=== PATIENT | female | born 1970 | race African-American/Black ===

== ENCOUNTER 2022-01-09 00:03 | Emergency (ER) | payer OTHER ==
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
[2022-01-09] MEDS ORDERED: HYDROCODONE/APAP 5/325 MG TAB ONE (00:50)
[2022-01-09 01:00] LABS: Urine Blood Negative (Negative); Urine Glucose Negative (Negative); Urine Protein Negative (Negative); Urine pH 5.5 (5.0-7.0)
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
--- NOTE | 2022-01-09 04:11 | EDPHYS ---
Physician Documentation [facility] Name: Isaías Ulloa Age: 51 yrs Sex: Female : 1970 Arrival Date: 01/09/2022 Time: 00:06 Bed 5 Private MD: ED Physician Adelso Dyson HPI: 01/09 00:49 This 51 yrs old Black Female presents to ER via Ambulatory with complaints of Fall mh7 Injury. 00:49 Details of fall: The patient fell from a height, down approximately 3 stairs, and mh7 struck a concrete surface. Onset: The symptoms/episode began/occurred last night. Associated injuries: The patient sustained upper back injury, pain, pain with movement, injury to the low back, pain, pain with movement, left shoulder. 00:52 Severity of symptoms: At their worst the symptoms were moderate, last night, in the [facility] emergency department the symptoms have improved, moderately. States that she was walking downstairs at her sisters place when a stair gave way, breaking in half, which caused her to slip and fall down a few stairs onto her back. Denies any head trauma or LOC. . 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 - Social history:: Smoking status: Patient denies any tobacco usage or history of. Patient/guardian denies using alcohol, street drugs. ROS: 00:52 Constitutional: Negative for fever, chills, and weight loss, Eyes: Negative for injury, mh7 pain, redness, and discharge, ENT: Negative for injury, pain, and discharge, Cardiovascular: Negative for chest pain, palpitations, and edema, Respiratory: Negative for shortness of breath, cough, wheezing, and pleuritic chest pain, Abdomen/GI: Negative for abdominal pain, nausea, vomiting, diarrhea, and constipation, : Negative for injury, bleeding, discharge, and swelling, Skin: Negative for injury, rash, and discoloration, Neuro: Negative for headache, weakness, numbness, tingling, and seizure, Psych: Negative for depression, anxiety, suicide ideation, homicidal ideation, and hallucinations, Allergy/Immunology: Negative for hives, rash, and allergies, Endocrine: Negative for neck swelling, polydipsia, polyuria, polyphagia, and marked weight changes, Hematologic/Lymphatic: Negative for swollen nodes, abnormal bleeding, and unusual bruising. Exam: 00:52 Head/Face: Normocephalic, atraumatic. Eyes: Pupils equal round and reactive to light, mh7 extra-ocular motions intact. Lids and lashes normal. Conjunctiva and sclera are non-icteric and not injected. Cornea within normal limits. Periorbital areas with no swelling, redness, or edema. Chest/axilla: Normal chest wall appearance and motion. Nontender with no deformity. No lesions are appreciated. Cardiovascular: Regular rate and rhythm with a normal S1 and S2. No gallops, murmurs, or rubs. Normal PMI, no JVD. No pulse deficits. Respiratory: Lungs have equal breath sounds bilaterally, clear to auscultation and percussion. No rales, rhonchi or wheezes noted. No increased work of breathing, no retractions or nasal flaring. Abdomen/GI: Soft, non-tender, with normal bowel sounds. No distension or tympany. No guarding or rebound. No evidence of tenderness throughout. Skin: Warm, dry with normal turgor. Normal color with no rashes, no lesions, and no evidence of cellulitis. Neuro: Awake and alert, GCS 15, oriented to person, place, time, and situation. Cranial nerves II-XII grossly intact. Motor strength 5/5 in all extremities. Sensory grossly intact. Cerebellar exam normal. Normal gait. Psych: Awake, alert, with orientation to person, place and time. Behavior, mood, and affect are within normal limits. 00:52 Constitutional: The patient appears in no acute distress, alert, awake, uncomfortable. Vital Signs: 00:14 BP 164 / 94; Pulse 78; Resp 18; Temp 97.3; Pulse Ox 99% on R/A; Weight 108.86 kg; renzo Height 6 ft. 1 in. (185.42 cm); Pain 8/10; 02:01 BP 137 / 87; Pulse 56; Resp 16; Pulse Ox 98% on R/A; kd3 02:53 BP 122 / 77; Pulse 52; Resp 16; Pulse Ox 100% on R/A; kd3 03:47 BP 152 / 83; Pulse 54; Resp 17; Pulse Ox 100% on R/A; kd3 00:14 Body Mass Index 31.66 (108.86 kg, 185.42 cm) renzo MDM: 04:05 Differential diagnosis: abrasion, contusion, fracture, sprain. Data reviewed: vital [facility] signs, nurses notes, lab test result(s), UPT: negative radiologic studies, CT scan, plain films. Data interpreted: Pulse oximetry: on room air is 100 %. Interpretation: normal. Counseling: I had a detailed discussion with the patient and/or guardian regarding: the historical points, exam findings, and any diagnostic results supporting the discharge/admit diagnosis, the presence of at least one elevated blood pressure reading (>120/80) during this emergency department visit, lab results, radiology results, the need for outpatient follow up, to return to the emergency department if symptoms worsen or persist or if there are any questions or concerns that arise at home. Response to treatment: the patient's symptoms have markedly improved after treatment. ED course: Discussed all test results including CT Cervical spine with lucencies at C3, C4, C6, and C7 and recommendation for MRI to evaluate for metastasis or myeloma. She verbalized that she understood the information as presented.. 04:10 Patient medically screened. [facility] 01/09 00:59 Order name: Urine --Ancillary (enter results); Complete Time: 01:12 ds4 01/09 01:00 Order name: Urine Dipstick-Ancillary; Complete Time: 01:12 EDMS 01/09 00:42 Order name: CT Thoracic Spine Wo Cont [facility] 01/09 00:42 Order name: CT Lumbar Spine Wo Con [facility] 01/09 00:45 Order name: Shoulder Left (2 View) XRAY [facility] 01/09 00:54 Order name: CT C Spine [facility] 01/09 00:45 Order name: Urine Test (obtain specimen); Complete Time: 00:59 [facility] Administered Medications: 00:51 Drug: [place] (HYDROcodone-acetaminophen) 5 mg-325 mg 1 tabs Route: PO; kd3 04:28 Follow up: Response: No adverse reaction; Pain is decreased kd3 Disposition Summary: 01/09/22 04:10 Discharge Ordered Location: Home [facility] Problem: new [facility] Symptoms: have improved [facility] Condition: Stable mh7 Diagnosis - Fall (on) (from) other stairs and steps 7 - Contusion, back, left shoulder [facility] Followup: [facility] - With: Private Physician - When: 1 - 2 days - Reason: Worsening of condition, Recheck today's complaints, Continuance of care, Re-evaluation by your physician Followup: [facility] - With: Mo Garcia MD - When: 1 - 2 days - Reason: Worsening of condition, Recheck today's complaints Discharge Instructions: - Discharge Summary Sheet [facility] - Acute Back Pain, Adult [facility] - Shoulder Pain, [id number] [facility] - Contusion, [id number] [facility] - Fall Prevention in the Home, Adult, [id number] [facility] Forms: - Medication Reconciliation Form [facility] - Thank You Letter [facility] - Antibiotic Education [facility] - Prescription Opioid Use [facility] Prescriptions: - Ibuprofen 800 mg Oral Tablet - take 1 tablet by ORAL route every 8 hours As needed take with food; 15 tablet; mh7 Refills: 0, Product Selection Permitted - Cyclobenzaprine 10 mg Oral Tablet - take 1 tablet by ORAL route every 8 hours As needed; 15 tablet; Refills: 0, mh7 Product Selection Permitted Signatures: Dispatcher [employer] Adelso Kraus MD MD 7 Sonam Soto RN RN kd3 Wendy Hernandez RN RN renzo
[2022-01-09 04:40] VITALS: TEMP 97.3
[2022-01-09 04:43] VITALS: O2SAT 100
[2022-01-09 04:44] VITALS: BP 152/83
--- NOTE | 2022-01-09 22:43 | RAD REPORT ---
EXAM DESCRIPTION: CT - C Spine Wo Con - 01/09/2022 6:58 am COMPARISON: None FINDINGS: CERVICAL: Vertebra: No acute fracture. Small lucencies at C3, C4, C6 and C7 vertebral bodies measuring up to 5 mm. Alignment: Straightening of the normal cervical lordosis without spondylolisthesis. Canal: No high-grade spinal canal stenosis. Soft tissues: Unremarkable. LUMBAR: Vertebra: No acute fracture. Alignment: Bilateral L5 pars defects with grade 1 anterolisthesis of L5.. Degenerative: Mild to moderate L5-S1 degenerative changes. No high-grade spinal canal stenosis. Soft tissues: Unremarkable. IMPRESSION: Cervical spine: 1. No acute findings. 2. Lucencies at C3, C4, C6 and C7 vertebral bodies measuring up to 5 mm. Recommend MRI to evaluate fo r metastasis or myeloma. Lumbar spine: 1. No acute findings. 2. Chronic findings as above. Electronically signed by: Josep Sanders MD 01/09/2022 1:54 AM CDT Due to temporary technical issues with the PACS/Fluency reporting system, reports are being signed by the in house radiologists without review as a courtesy to insure prompt reporting. The interpreting radiologist is fully responsible for the content of the report.
--- NOTE | 2022-01-09 22:45 | RAD REPORT ---
EXAM DESCRIPTION: CT - Thoracic Spine W/o Cont - 01/09/2022 6:59 am CLINICAL HISTORY: The patient is 51 years old and is Female; Fall;Pain TECHNIQUE: Axial computed tomography images of the thoracic spine without intravenous contrast. Sa gittal and coronal reformatted images were created and reviewed. This CT exam was performed using o ne or more of the following dose reduction techniques: automated exposure control, adjustment of th e mA and/or kV according to patient size, and/or use of iterative reconstruction technique. COMPARISON: No relevant prior studies available. FINDINGS: VERTEBRAE: Mild exaggeration of the thoracic curvature is present. The vertebral body he ights and alignment are maintained. There is no acute fracture. DISCS/SPINAL CANAL/NEURAL FORAMINA: Minimal intervertebral disc space narrowing with anterior ost eophyte formation throughout the thoracic spine is present. There is no significant canal stenosis or neural foraminal narrowing. SOFT TISSUES: The soft tissues are normal. IMPRESSION: No fracture or malalignment of the thoracic spine. Electronically signed by: Shanika Lizarraga MD 01/09/2022 1:32 AM CDT Due to temporary technical issues with the PACS/Fluency reporting system, reports are being signed by the in house radiologists without review as a courtesy to insure prompt reporting. The interpreting radiologist is fully responsible for the content of the report.
--- NOTE | 2022-01-09 22:48 | RAD REPORT ---
EXAM DESCRIPTION: CT - Spine Lumbar Wo Con - 01/09/2022 6:58 am CLINICAL HISTORY: 51 years Female Fall; pain TECHNIQUE: Noncontrast cervical and lumbar spine CT with sagittal and coronal reconstructions. All C T scans at this facility use dose modulation, iterative reconstruction, and/or weight based dosing wh en appropriate to reduce radiation dose to as low as reasonably achievable. COMPARISON: None FINDINGS: CERVICAL: Vertebra: No acute fracture. Small lucencies at C3, C4, C6 and C7 vertebral bodies measuring up to 5 mm. Alignment: Straightening of the normal cervical lordosis without spondylolisthesis. Canal: No high-grade spinal canal stenosis. Soft tissues: Unremarkable. LUMBAR: Vertebra: No acute fracture. Alignment: Bilateral L5 pars defects with grade 1 anterolisthesis of L5.. Degenerative: Mild to moderate L5-S1 degenerative changes. No high-grade spinal canal stenosis. Soft tissues: Unremarkable. IMPRESSION: Cervical spine: 1. No acute findings. 2. Lucencies at C3, C4, C6 and C7 vertebral bodies measuring up to 5 mm. Recommend MRI to evaluate fo r metastasis or myeloma. Lumbar spine: 1. No acute findings. 2. Chronic findings as above. Electronically signed by: Josep Sanders MD 01/09/2022 1:54 AM CDT Due to temporary technical issues with the PACS/Fluency reporting system, reports are being signed by the in house radiologists without review as a courtesy to insure prompt reporting. The interpreting radiologist is fully responsible for the content of the report.
--- NOTE | 2022-01-09 22:49 | RAD REPORT ---
EXAM DESCRIPTION: RAD - Shoulder Left 2 View - 01/09/2022 1:05 am CLINICAL HISTORY: 51 years Female, Fall;Pain COMPARISON: None. FINDINGS: No evidence of an acute fracture of the left shoulder. No dislocation. Visualized left lung is clear. Surrounding soft tissues are unremarkable. IMPRESSION: No evidence for an acute fracture of the left shoulder. Electronically signed by: Ezio Livingston MD 01/09/2022 1:23 AM CDT Due to temporary technical issues with the PACS/Fluency reporting system, reports are being signed by the in house radiologists without review as a courtesy to insure prompt reporting. The interpreting radiologist is fully responsible for the content of the report.
== END 2022-01-09 04:29 | disposition home or self-care (01) ==
LOC: ER 00:03
DX: S30.0XXA Contusion of lower back and pelvis, initial encounter (principal); S40.012A Contusion of left shoulder, initial encounter; W10.8XXA Fall (on) (from) other stairs and steps, initial encounter; Y92.89 Other specified places as the place of occurrence of the external cause
CPT/HCPCS: 72125; 72128; 72131; 81003; 81025; 99283